=== PATIENT | female | born 1960 | race Caucasian/White ===

== ENCOUNTER 2017-07-01 15:45 | Day surgery (SDC) | payer OTHER ==
[2017-07-01] MEDS ORDERED: TRIMETHOBENZAMIDE 100 MG/ML VIAL IM (17:30)
[2017-07-01] MEDS ORDERED: MIDAZOLAM 1 MG/ML 2 ML INJ IV (17:30)
[2017-07-01] MEDS ORDERED: MEPERIDINE 25 MG INJ IV (17:30)
[2017-07-01] MEDS ORDERED: DIPHENHYDRAMINE 50 MG INJ IV (17:30)
[2017-07-01] MEDS ORDERED: OXYCODONE/ACETAMINOPHEN (5/325) TAB PO ×2 (17:30)
[2017-07-01] MEDS ORDERED: ALBUTEROL 0.083% (NEB) 2.5 MG/3 ML AMP HHN (17:30)
[2017-07-01] MEDS ORDERED: IPRATROPIUM (NEB) 0.5 MG/2.5 ML AMP HHN (17:30)
[2017-07-01] MEDS ORDERED: LABETALOL HCL 20MG INJ IV (17:30)
[2017-07-01] MEDS ORDERED: EPHEDrine SULFATE 50 MG/5 ML SYG IV (17:30)
[2017-07-01] MEDS ORDERED: FENTAnyl 50 MCG/ML VIAL IV ×2 (17:30)
[2017-07-01] MEDS ORDERED: hydrALAzine 20 MG INJ IV (17:30)
[2017-07-01] MEDS ORDERED: POLYMYXIN/BACITRACIN 1L IRRIG (17:58)
[2017-07-01] MEDS ORDERED: LIDOCAINE 2% (SDV) 5 ML INJ (18:05)
[2017-07-01] MEDS ORDERED: PROPOFOL 20 ML (18:05)
[2017-07-01] MEDS ORDERED: ONDANSETRON 4 MG INJ (18:05)
[2017-07-01] MEDS ORDERED: FENTAnyl 50 MCG/ML VIAL (18:06)
[2017-07-01] MEDS ORDERED: MIDAZOLAM 1 MG/ML 2 ML INJ (18:06)
[2017-07-01] MEDS ORDERED: KETOROLAC 30 MG INJ (18:07)
[2017-07-01] MEDS ORDERED: CLINDAMYCIN 900 MG/D5W (PMX) 50 ML IVPB (18:14)
[2017-07-01] MEDS: BUPIVACAINE 0.5% (SDV) 30 ML INJ ×2 (18:22→18:30)
[2017-07-01] MEDS: ONDANSETRON 4 MG INJ IV (18:50)
[2017-07-01] MEDS: FENTAnyl 50 MCG/ML VIAL IV (18:50)
[2017-07-01] MEDS: HYDROCODONE/APAP (5/325) TAB PO (19:30)
== END 2017-07-01 19:47 | disposition home or self-care (01) ==
LOC: SDS 15:45
DX: E83.59 Other disorders of calcium metabolism (principal); D49.2 Neoplasm of unspecified behavior of bone, soft tissue, and skin
CPT/HCPCS: 24076; 87070; 87102; 87116; 88307